=== PATIENT | female | born 1980 | race Caucasian/White ===

== ENCOUNTER 2016-12-30 21:57 | Observation (INO) | payer OTHER ==
[~2016-12-30] VITALS: Ht 157.5 cm; Wt 79.0 kg
[~2016-12-30 21:57] MED LIST: LEVO25TA55 PO; OXYC-323 PO; PRED20TA PO; SERT50TA PO; ZOLP5TAB PO
--- NOTE | 2016-12-30 22:08 | ED.ADGEN ---
Past History Past Medical History: Depression, Other Past Surgical History: Alcohol Use: None Drug Use: None Adult General Chief Complaint Chief Complaint Chest pain HPI HPI Patient is a 36 year old female who presents with substernal chest pain. She states is an achy sensation is been constant all day is made worse when she sneezes or takes a deep breath. She's been having sinus congestion without any discharge however she's been having some green sputum production over the last several days. She's been trying Sudafed without any relief. She denies any family history of heart attacks. She is very concerned she might have pneumonia as her symptoms are very similar to the previous time she had pneumonia. He denies any nausea, diaphoresis associated with her discomfort. Review of Systems Review of Systems Constitutional: Denies fever or chills [] Eyes: Denies change in visual acuity, redness, or eye pain [] HENT: Denies nasal congestion or sore throat [] Respiratory: positive for cough and shortness of breath Cardiovascular: No additional information not addressed in HPI [] GI: Denies abdominal pain, nausea, vomiting, bloody stools or diarrhea [] : Denies dysuria or hematuria [] Musculoskeletal: Denies back pain or joint pain [] Integument: Denies rash or skin lesions [] Neurologic: Denies headache, focal weakness or sensory changes [] Endocrine: Denies polyuria or polydipsia [] Current Medications Current Medications Current Medications Medications (Trade) Dose Ordered Sig/Tom Start Time Stop Time Status Last Admin Dose Admin Aspirin (Sophy Aspirin) 325 mg 1X ONCE 12/31/16 00:30 12/31/16 00:31 UNV 12/31/16 00:30 325 MG Aspirin (Children'S Aspirin) 81 mg STK-MED ONCE 12/31/16 00:31 12/31/16 00:32 DC Morphine Sulfate (Morphine 2mg Syringe) 2 mg PRN Q15MIN PRN 12/30/16 22:15 12/31/16 22:14 12/31/16 00:38 2 MG Allergies Allergies Allergies Coded Allergies Type Severity Reaction Last Updated Verified No Known Drug Allergies 08/23/15 No Physical Exam Physical Exam Constitutional: Well developed, well nourished, no acute distress, non-toxic appearance. [] HENT: Normocephalic, atraumatic, bilateral external ears normal, oropharynx moist, no oral exudates, nose normal. [] Eyes: PERRLA, EOMI, conjunctiva normal, no discharge. [] Neck: Normal range of motion, no tenderness, supple, no stridor. [] Cardiovascular:Heart rate regular rhythm, no murmur [] Lungs & Thorax: Bilateral breath sounds clear to auscultation [] Abdomen: Bowel sounds normal, soft, no tenderness, no masses, no pulsatile masses. [] Skin: Warm, dry, no erythema, no rash. [] Back: No tenderness, no CVA tenderness. [] Extremities: No tenderness, no cyanosis, no clubbing, ROM intact, no edema. [] Neurologic: Alert and oriented X 3, normal motor function, normal sensory function, no focal deficits noted. [] Psychologic: Affect normal, judgement normal, mood normal. [] Current Patient Data Vital Signs Vital Signs Date Time Temp Pulse Resp B/P (MAP) Pulse Ox O2 Delivery O2 Flow Rate FiO2 12/31/16 00:38 20 98 Room Air Lab Results Laboratory Tests Test 12/30/16 22:40 12/30/16 22:45 White Blood Count 7.0 x10^3/uL (4.0-11.0) Red Blood Count 4.27 x10^6/uL (3.50-5.40) Hemoglobin 13.4 g/dL (12.0-15.5) Hematocrit 39.8 % (36.0-47.0) Mean Corpuscular Volume 93 fL (79-100) Mean Corpuscular Hemoglobin 31 pg (25-35) Mean Corpuscular Hemoglobin Concent 34 g/dL (31-37) Red Cell Distribution Width 12.3 % (11.5-14.5) Platelet Count 272 x10^3/uL (140-400) Neutrophils (%) (Auto) 56 % (31-73) Lymphocytes (%) (Auto) 35 % (24-48) Monocytes (%) (Auto) 8 % (0-9) Eosinophils (%) (Auto) 1 % (0-3) Basophils (%) (Auto) 0 % (0-3) Neutrophils # (Auto) 3.9 x10^3uL (1.8-7.7) Lymphocytes # (Auto) 2.4 x10^3/uL (1.0-4.8) Monocytes # (Auto) 0.6 x10^3/uL (0.0-1.1) Eosinophils # (Auto) 0.1 x10^3/uL (0.0-0.7) Basophils # (Auto) 0.0 x10^3/uL (0.0-0.2) Prothrombin Time 9.7 SEC (9.4-11.4) Prothrombin Time INR 0.9 (0.9-1.1) PTT 25 SEC (23-33) D-Dimer (Keila) 0.49 mg/L (0.00-0.50) Urine Collection Type Unknown Urine Color Yellow Urine Clarity Clear Urine pH 5.5 Urine Specific [place] 1.020 Urine Protein Neg (NEG-TRACE) Urine Glucose (UA) Neg mg/dL (NEG) Urine Ketones (Stick) Neg mg/dL (NEG) Urine Blood Mod (NEG) Urine Nitrite Neg (NEG) Urine Reducing Substances % (NEG) Urine Bilirubin Neg (NEG) Urine Urobilinogen Dipstick 0.2 mg/dL (0.2 mg/dL) Urine Leukocyte Esterase Neg (NEG) Urine RBC 3-5 /HPF (0-2) Urine WBC Occ /HPF (0-4) Urine Squamous Epithelial Cells Few /LPF Urine Bacteria Few /HPF (0-FEW) Sodium Level 141 mmol/L (136-145) Potassium Level 3.6 mmol/L (3.5-5.1) Chloride Level 106 mmol/L (98-107) Carbon Dioxide Level 27 mmol/L (21-32) Anion Gap 8 (6-14) Blood Urea Nitrogen 17 mg/dL (7-20) Creatinine 0.9 mg/dL (0.6-1.0) Estimated GFR (Cockcroft-Gault) 71.3 Glucose Level 94 mg/dL (70-99) Calcium Level 8.9 mg/dL (8.5-10.1) Magnesium Level 2.0 mg/dL (1.8-2.4) Total Bilirubin 0.2 mg/dL (0.2-1.0) Direct Bilirubin 0.1 mg/dL (0.0-0.2) Aspartate Amino Transferase (AST) 15 U/L (15-37) Alanine Aminotransferase (ALT) 22 U/L (14-59) Alkaline Phosphatase 75 U/L (46-116) Creatine Kinase 93 U/L (26-192) Creatine Kinase MB (Mass) 0.7 ng/mL (0.0-3.6) Creatine Kinase MB Relative Index 0.8 % (0-4) Troponin I Quantitative < 0.017 ng/mL (0-0.055) SL-Lyj-S-Type Natriuretic Peptide 26 pg/mL (0-124) Total Protein 7.3 g/dL (6.4-8.2) Albumin 3.5 g/dL (3.4-5.0) Lipase 126 U/L (73-393) Serum Test, Qualitative Negative (NEG) POC Urine HCG, Qualitative hcg negative (Negative) EKG EKG EKG shows sinus rhythm with a rate of [address] elevations, T-wave inversions noted in lead 3 and aVF, left axis deviation, QTC 413 ms, as interpreted by me. Radiology/Procedures Radiology/Procedures 2 view chest x-ray did not show any focal consolidations, bony abnormalities, or pneumothorax, as interpreted by me. Course & Med Decision Making Course & Med Decision Making Pertinent Labs and Imaging studies reviewed. (See chart for details) D-dimer is negative at 0.49, troponin is negative. Chest x-ray does not show any acute abnormalities. She does have T-wave inversion in lead 3 and aVF, we' ll admit to Dr. Mota , she's been given aspirin. She is agreeable to the plan and is in stable condition this time. Interim orders have been written. Final Impression Final Impression Chest pain Problems: Dragon Disclaimer Dragon Disclaimer This electronic medical record was generated, in whole or in part, using a voice recognition dictation system. JULIET FRANCO MD December 30, 2016 22:07
[2016-12-30] MEDS ORDERED: MORPHINE SULFATE 2 MG/ML DISP.SYRIN. IV/SQ PRN (22:15)
[2016-12-30 23:02] LABS: BASO % 0 % (0-3); EOS # 0.1 x10^3/uL (0.0-0.7); EOS % 1 % (0-3); HEMATOCRIT 39.8 % (36.0-47.0); HEMOGLOBIN 13.4 g/dL (12.0-15.5); LYMPH # 2.4 x10^3/uL (1.0-4.8); LYMPH % 35 % (24-48); MEAN CORPUSCULAR HEMOGLOBIN 31 pg (25-35); MEAN CORPUSCULAR HGB CONC 34 g/dL (31-37); MEAN CORPUSCULAR VOLUME 93 fL (79-100); MONO # 0.6 x10^3/uL (0.0-1.1); MONO % 8 % (0-9); NEUT # 3.9 x10^3uL (1.8-7.7); NEUT % 56 % (31-73); PLATELET COUNT 272 x10^3/uL (140-400); RED BLOOD COUNT 4.27 x10^6/uL (3.50-5.40); RED CELL DISTRIBUTION WIDTH 12.3 % (11.5-14.5)
[2016-12-30 23:12] LABS: PREG TEST PT QUAL NEGATIVE (NEG)
[2016-12-30 23:13] LABS: BACTERIA,URINE FEW /HPF (0-FEW); BILIRUBIN,URINE NEG (NEG); CLARITY,URINE CLEAR; COLOR,URINE YELLOW; GLUCOSE,URINE NEG (NEG); NITRITE,URINE NEG (NEG); SQUAMOUS EPITHELIAL CELL,UR FEW /LPF; UROBILINOGEN,URINE 0.2 mg/dL (0.2 mg/dL); WBC,URINE OCC /HPF (0-4)
[2016-12-30 23:22] LABS: ALBUMIN 3.5 g/dL (3.4-5.0); CALCIUM 8.9 mg/dL (8.5-10.1); CREATININE 0.9 mg/dL (0.6-1.0); DIRECT BILIRUBIN 0.1 mg/dL (0.0-0.2); GFR 71.3; POTASSIUM 3.6 mmol/L (3.5-5.1); TOTAL BILIRUBIN 0.2 mg/dL (0.2-1.0); TOTAL PROTEIN 7.3 g/dL (6.4-8.2)
[2016-12-31] MEDS ORDERED: ASPIRIN 325 MG TABLET PO ONE (00:30)
[2016-12-31] MEDS ORDERED: ASPIRIN 81 MG TAB.CHEW ONE (00:31)
[2016-12-31] MEDS ORDERED: MORPHINE SULFATE 2 MG/ML DISP.SYRIN. IV PRN (01:00)
[2016-12-31] MEDS ORDERED: ONDANSETRON PF 4 MG/2 ML VIAL. IV PRN (01:00)
--- NOTE | 2016-12-31 01:22 | ACF ---
Admission Criteria Forms CARDIOLOGY [facility] Clinical Indications for Admission to Inpatient Care ( Place 'X' for any and all applicable criteria): Hospital admission is needed for appropriate care of the patient because of ANY ONE of the following (1): [ ] I. Hemodynamic instability as indicated by ALL of the following (1)(2)(3) (4)(5) [ ]a) Vital signs or other findings not as expected for chronic patient condition or baseline [ ]b) Instability indicated by ANY ONE of the following: [ ]i) Hypotension [ ]ii) Symptomatic Tachycardia unresponsive to treatment ( e.g., analgesia, fluids, sedation as indicated) [ ]iii) Inadequate perfusion indicated by ANY ONE of the following: [ ] 1) Lactic acidosis (> 2 mmol/L) [ ] 2) New abnormal capillary refill (> 3 seconds) [ ] 3) Reduced urine output [ ] 4) New altered mental status [ ]iv) Orthostatic vital sign changes unresponsive to treatment (e.g., fluids) [ ]v) IV inotropic or vasopressor medication required to maintain adequate blood pressure or perfusion [ ] II. Severe heart failure as indicated by ANY ONE of the following(17)(18) [ ]a) Respiratory distress [ ]b) Hypotension [ ]c) Anasarca (refractory to outpatient therapy) [ ]d) Cardiac arrhythmias of immediate concern [ ]e) Myocardial ischemia [ ] III. Cardiac arrhythmias or findings of immediate concern indicated by ANY ONE of the following (19)(20): [ ] a) Heart rhythms that are inherently dangerous or unstable indicated by ANY ONE of the following (21)(22)(23): [ ] i) Resuscitated ventricular fibrillation or cardiac arrest [ ] ii) Ventricular escape rhythm [ ] iii) Sustained ventricular tachycardia (30 seconds or more of ventricular rhythm at greater than 100 beats per minute) [ ] iv) Nonsustained ventricular tachycardia and ANY ONE of the following: [ ] 1) Suspected cardiac ischemia as cause or consequence of ventricular tachycardia [ ] 2) In setting of acute myocarditis [ ] b) Unstable cardiac conduction defects indicated by ANY ONE of the following(23)(24)(25) [ ] i) Type II second-degree atrioventricular block [ ]ii) Third-degree atrioventricular block [ ]iii) New-onset left bundle branch block with suspected myocardial ischemia [ ]c) Any heart rhythm and ANY ONE of the following (21)(22)(26)(27) (28) [ ] i) Continuous long-term ECG monitoring needed (e.g., initiation of drug requiring monitoring for more than 24 hours) [ ] ii) Patient has automatic implanted cardioverter defibrillator that is repeatedly firing, malfunctioning, or in need of immediate adjustment of settings beyond the scope of ambulatory or observation care [ ]d) Heart rhythms of concern due to ANY ONE of the following: [ ] i) Hypotension [ ] ii) Respiratory distress [ ] iii) Association with other significant symptoms (e.g., bradycardia with syncope or ongoing dizziness, supraventricular tachycardia with chest pain (14)(15)(17) [ ] IV. Monitoring for cardiac contusion beyond the scope of observation care needed [A](30)(31)(32) [ ] V. Surgical or device complication (e.g., valve replacement complication , pacemaker dysfunction) (35)(41)(44)(45)(46) [ ] . Inpatient palliative care needed. [B](49) Also use Inpatient Palliative Care Criteria [ ] VII. Nonbacterial thrombotic (marantic) endocarditis (36)(43)(47)(48) [X ] VIII. Cardiology condition, symptom, or finding for which emergency and observation care has failed or are not considered appropriate. [ ] IX. Acute valvular disease requiring inpatient as indicated by ANY ONE of the following (41) [ ]a) Acute valvular regurgitation (42) [ ]b) Noninfectious valvulitis (43) [ ]c) Obstructive valve thrombosis [ ]d) Paravalvular leak [ ]e) Other significant valvular disorder remaining after emergency or observation level of care (as appropriate) [ ]X. Pericardial disease requiring inpatient treatment as indicated by ANY ONE of the following (33)(34)(35)(36)(37) [ ]a) Suspected tamponade (38)(39)(40) [ ]b) Hemopericardium [ ]c) Other significant pericardial disorder remaining after emergency or observation level of care (as appropriate) [ ] XI. Cardiac ischemia beyond scope of emergency and observation care. [ ] XII. Hypertension requiring inpatient treatment as indicated by ANY ONE of the following (6)(7)(8) [ ]a) SBP greater than 220 mm Hg or DBP greater than 120 mmHg despite treatment [ ]b) SBP greater than 140 mm Hg or DBP greater than 100 mm Hg with evidence of acute end organ damage as indicated by ANY ONE of the following [ ] i) Encephalopathy [ ] ii) Acute renal failure as indicated by new onset of ANY ONE of the following (9)(10)(11)(12)(13) [ ]1) 3-fold rise in serum creatinine from baseline [ ]2) Serum creatinine greater than 4 mg/dL ( 354 micromoles/L) with acute rise greater than 0.5 mg/dL (44.2 micromoles/L) [ ]3) Reduction of more than 75% in estimated glomerular filtration rate from baseline [ ]4) Estimated glomerular filtration rate less than 35 mL/min/1.73m2 (0.59 mL/sec/1.73m2) in child up to 18 years of age [ ]5) Cessation of urine output indicated by ALL of the following [ ]A. Adequate volume status [ ]B. Inadequate urine output as indicated by ANY ONE of the following [ ]a. Urine output less than 0.3 mL/kg/hr for 24 hours [ ]b. Anuria (urine output less than 0.1 mL/kg/hr) for 12 hours [ ] iii) Aortic dissection [ ] iv) Myocardial Ischemia [ ] v) Left ventricular heart failure [ ]vi) Retinal Hemorrhage [ ]vii) Other significant finding [ ]c) Hypertension in child requiring inpatient treatment as indicated by ALL of the following(14)(15)(16) [ ] i) Outpatient treatment not effective, not available, or not appropriate [ ]ii) SBP or DBP greater than 95th percentile for age [ ]iii) Evidence of acute end organ damage as indicated by ANY ONE of the following [ ]1) Altered mental status [ ]2) Acute renal failure as indicated by new onset of ANY ONE of the following(9)(10)(11)(12)(13) [ ]A. 3-fold rise in serum creatinine from baseline [ ]B. Serum creatinine greater than 4 mg/dL (354 micromoles/L) with acute rise greater than 0.5 mg/dL (44.2 micromoles/L) [ ]C. Reduction of more than 75% in estimated glomerular filtration rate from baseline [ ]D. Estimated glomerular filtration rate less than 35 mL/min/1.73m2 (0.59 mL/sec/1.73m2) in child up to 18 years of age [ ]E. Cessation of urine output indicated by ALL of the following [ ]a. Adequate volume status [ ]b. Inadequate urine output as indicated by ANY ONE of the following [ ]i) Urine output less than 0.3 mL/kg/hr for 24 hours [ ]ii) Anuria ( urine output less than 0.1 mL/kg/hr) for 12 hours [ ]3) Severe headache [ ]4) Visual disturbance [ ]5) Retinal hemorrhage [ ]6) Other significant finding [ ]XIII. Complications of transplanted heart indicated by ANY ONE of the following(61): [ ]a) Acute graft rejection requiring inpatient management (eg, intravenous immunosuppression)(62)(63) [ ]b) Acute graft heart failure indicated by ANY ONE of the following(64): [ ]i) Hemodynamic instability [ ]ii) Cardiac arrhythmias of immediate concern [ ]iii) Pulmonary edema that is very severe (eg, mechanical ventilation needed, imminent or likely, need for 100% oxygen to keep oxygen saturation above 90%) [ ]iv) Pulmonary edema that is persistent as indicated by ALL of the following: [ ]1) New need for oxygen therapy to keep oxygen saturation above 90% (or increased FiO2 need from baseline) [ ]2) Has not improved sufficiently with emergency department or observation care IV diuretics or other heart failure treatments[E] [ ]v) Altered mental status that is severe or persistent [ ]vi) Increased creatinine (new on laboratory test) with reduction of more than 50% in estimated glomerular filtration rate from baseline [ ]vii) Progressively (ongoing) rising creatinine (known from past laboratory test) with reduction of more than 25% in estimated glomerular filtration rate from baseline [ ]viii) Acute renal failure [ ]ix) Acute peripheral ischemia (eg, examination shows pulseless, cool, mottled, or cyanotic extremity) [ ]x) Pulmonary artery catheter monitoring needed [ ]xi) Other sign or symptom of heart failure requiring inpatient treatment (ie, too severe or not responsive to outpatient and observation care treatment) [ ]c) Infection requiring inpatient management (eg, Hemodynamic instability, need for intravenous antimicrobial treatment)(66)(67)(68)(69)(70) [ ]d) Cardiac allograft vasculopathy requiring inpatient management ( eg evidence of cardiac ischemia)(71) [ ]e) Other complication of transplanted heart (eg, stroke, severe pulmonary hypertension, severe valvular dysfunction) requiring inpatient management(72) The original [facility] content created by [facility] has been revised. The portions of the content which have been revised are identified through the use of italic text or in bold, and [facility] has neither reviewed nor approved the modified material. All other unmodified content is copyright [facility]. Please see references footnoted in the original [facility] edition 2016 Admission Criteria Met?: Yes FLORENTINO FERGUSON December 31, 2016 01:22
[2016-12-31 01:30] VITALS: BP 113/75
[2016-12-31] MEDS ORDERED: NORE-87 PO (02:03)
[2016-12-31] MEDS ORDERED: oxyCODONE/APAP 5/325 1 TAB TABLET PO PRN (02:45)
[2016-12-31 06:09] VITALS: BP 112/61
[2016-12-31 06:35] VITALS: BP 143/94
--- NOTE | 2016-12-31 06:39 | EKG ---
[address] [address] Test Date: 2016-12-30 Test Time: 22:04:10 Pat Name: CRESCENCIO GREENE Department: Room: 117 A Gender: F [employer]: SHANTAL : 1980 Requested By: JULIET FRANCO Order Number: [id number] Reading MD: Chip Guerrero Measurements Intervals [place] Rate: 65 P: 24 SD: 146 QRS: -16 QRSD: 88 T: 4 QT: 396 QTc: 413 Interpretive Statements SINUS RHYTHM INCOMPLETE RIGHT BUNDLE BRANCH BLOCK Electronically Signed On 01-06-2017 9:02:37 CDT by Chip Guerrero
[2016-12-31] MEDS ORDERED: LEVOTHYROXINE 25 MCG TABLET. PO SCH (07:00)
--- NOTE | 2016-12-31 07:03 | RAD ---
Indication: Chest pain and congestion. Time of exam 2320 hours. No prior studies are available for comparison. FINDINGS: The heart size is normal. The lungs are clear. No pleural effusion or pneumothorax is identified. The pulmonary vascularity is normal. IMPRESSION: No acute abnormality detected.
[2016-12-31] MEDS ORDERED: NORETHINDRONE A E ESTRADIOL PO SCH (09:00)
[2016-12-31] MEDS ORDERED: SERTRALINE 50 MG TABLET. PO SCH (09:00)
[2016-12-31 10:18] VITALS: BP 111/72
[2016-12-31] MEDS ORDERED: PANTOPRAZOLE 40 MG TABLET. PO SCH (11:30)
[2016-12-31] MEDS ORDERED: oxyCODONE/APAP 5/325 1 TAB TABLET PO ONE (13:30)
--- NOTE | 2016-12-31 13:41 | CARD ---
APPROVED REPORT INDICATION Chest Pain RISK FACTORS Obesity Reason : Abnormal EKG PROCEDURE The patient underwent an exercise Stress Test using the Juan Protocol. Blood pressure, heart rate, a nd EKG were monitored. An Echocardiogram was performed by ophthalmic technician apprentice in four stages in quad fashion. At peak stress four se lected images were obtained and placed side by side with resting images for comparison. STRESS ECHO FINDINGS The resting Echocardiogram showed normal left ventricular contractility with an estimated Ejection Fr action of about 65 %. Normal augmentation of myocardial wall segments using a 16 segment model. Test Type: Exercise Stress Nurse/Tech: Duran Ventura RDCS,RVT,RDMS,RT(R) Test Indications: Chest pain Resting Heart Rate: 73 bpm STRESS ECG Stress EKG shows no significant changes. Preliminary Notification Critical Value: No <Conclusion> No evidence of stress induced EKG changes. Normal exercise capacity with 13 Mets achieved on a Juan Protocol. Normal resting wall motion and EF of 55% Peak stress images do not demonstrate any significant wall motion abnormalities on parasternal long a xis images. EF > 70% Apical images were obtained at less than peak stress, but appear to demonstrate normal wall motion.
--- NOTE | 2016-12-31 13:44 | PDOC2 ---
STAR PRUITT WATCH CRYSTAL CUTTER 12/31/16 1344: CONSULT Date of Admission DATE: 12/31/16 TIME: 13:33 Reason for Consult: Chest pain Problem List Problems Medical Problems: (1) Chest pain Status: Acute History of Present Illness This is a pleasant 36-year-old female who presented to the emergency room with chief complaint of chest discomfort. She has a past medical history of hypothyroidism and depression. The last 2 days she has noticed chest congestion and has started to sneeze she thought she was coming down with pneumonia. Yesterday she started to notice pin pricking sensations all over her chest that would increase with deep breathing. She tried to take some Sudafed but it did not seem to get any better. She was coughing up green sputum without fever or chills. The chest pain was not related to activity and did not radiate into her jaw. She did feel slightly more short of breath but not any nausea, vomiting or diaphoresis. She thought she was going to come into the emergency room and get an antibiotic. She denies any recent changes in function however she has been under tremendous stress. She is getting ready to move on Friday and change to the stations and then her will be deployed. She felt like she had been handling stress quite well but does admit to internalizing in her feelings. This morning after her lab draw in her left arm she felt like she got a tingling sensation in her fingers that radiated up into her left arm and that her arm got weak. They did an EKG that did not show any changes and over the next 0.5 hour her symptoms abated without intervention. She has ruled out for myocardial infarction however she does have a slightly abnormal EKG with inverted T-wave in lead 3. Past medical/surgical history is significant for hypothyroidism, OCD, and depression Allergies -no known drug allergies Medications- Zoloft 100 milligrams daily and levothyroxine 25 micrograms daily Social history she lives at home with her who is getting ready to deploy a and she is moving to the stations. She denies any tobacco and only has social alcohol use. She denies any drug use. Family history - her mother has had diabetes since adolescents and her father is hypertensive. They both smoke, there is no history of premature coronary artery disease. Review of systems- review of 10 organ systems is negative except for as above. Physical exam GENERAL: This is a well developed, well nourished female. No apparent distress. SKIN: Warm and dry with normal skin turgor. Negative for pallor. No lesions or rashes noted. EYES: Conjunctiva are clear. Extraocular movements are intact. No xanthelasma. HEAD AND NECK: Oral mucosa is moist. There is no cyanosis. Neck is supple. Jugular venous pressure is flat. Carotid pulses are 2/2 bilaterally. No carotid bruit. There is no obvious thyromegaly. HEART: Regular rate and rhythm. Normal S1 and S2. No S3. No S4. No significant murmur. No rub. PMI is not displaced. LUNGS: Effort is good. There is symmetric expansion bilaterally. Clear to auscultation bilaterally. No wheezes. No crackles. No rhonchi. ABDOMEN: Normal active bowel sounds. Soft. Nontender. EXTREMITIES: No clubbing. No cyanosis. trace right > left edema of lower extremities. Palpable pedal pulses. MUSCULOSKELETAL: No kyphosis. No scoliosis. No localized tenderness or stiffness. Gait appears normal. NEUROLOGIC: Alert and oriented times three. Cranial nerves III-XII are grossly intact. Good motor tone and strength in the upper and lower extremities bilaterally. PSYCHOLOGIC: This is a pleasant patient with a normal affect Chest discomfort with slightly abnormal EKG. Her EKG and troponins are negative and her chest pains are atypical for cardiac. She has been under a great deal of stress and this could be GI in origin. Will plan for echo and stress test today and if unremarkable can discharge home. We will plan to start her on a month trial of Protonix Current Medications Current Medications Morphine Sulfate (Morphine 2mg Syringe) 2 mg PRN Q15MIN PRN IV/SQ PAIN GREATER THAN 3/10 Last administered on 12/31/16 00:38; Start 12/30/16 at 22:15; Stop 12/31 at 10:54; Status DC Aspirin (Sophy Aspirin) 325 mg 1X ONCE PO Last administered on 12/31/16 00:30 ; Start 12/31/16 at 00:30; Stop 12/31/16 at 01:38; Status DC Aspirin (Children'S Aspirin) 81 mg STK-MED ONCE .ROUTE ; Start 12/31/16 at 00:31 ; Stop 12/31/16 at 00:32; Status DC Ondansetron HCl (Zofran) 4 mg PRN Q4HRS PRN IV NAUSEA/VOMITING; Start 12/31/16 at 01:00; Stop 01/01/17 at 00:59 Morphine Sulfate (Morphine 2mg Syringe) 2 mg PRN Q2HR PRN IV PAIN; Start at 01:00; Stop 01/01/17 at 00:59 Levothyroxine Sodium (Synthroid) 25 mcg DAILY07 PO Last administered on 06:01; Start 12/31/16 at 07:00 Oxycodone/ Acetaminophen (Percocet 5/325) 1 tab PRN Q12HR PRN PO PAIN Last administered on 12/31/16 03:43; Start 12/31/16 at 02:45 Sertraline HCl (Zoloft) 100 mg DAILY PO Last administered on 12/31/16 08:06; Start 12/31/16 at 09:00; Stop 12/31/16 at 10:56; Status DC Non-Formulary Medication 1 tab DAILY PO ; Start 12/31/16 at 09:00; Stop 12/31/16 at 10:53; Status DC Pantoprazole Sodium (Protonix) 40 mg DAILYAC PO Last administered on 12/31/16 11:56; Start 12/31/16 at 11:30 Sertraline HCl (Zoloft) 100 mg DAILY PO ; Start 01/01/17 at 09:00 Oxycodone/ Acetaminophen (Percocet 5/325) 1 tab 1X ONCE PO Last administered on 12/31/16 13:14; Start 12/31/16 at 13:30; Stop 12/31/16 at 13:31; Status DC Active Scripts Active Reported Loestrin (Norethindrone A-E Estradiol) 1 Each Tablet 1 Tab PO DAILY LAST DOSE GIVEN: DATE: TIME: NEXT DOSE DUE: DATE: TIME: Synthroid (Levothyroxine Sodium) 25 Mcg Tablet 25 Mcg PO DAILYAC LAST DOSE GIVEN: DATE: TIME: NEXT DOSE DUE: DATE: TIME: Percocet 5-325 Mg Tablet (Oxycodone Hcl/Acetaminophen) 1 Each Tablet 1 Tab PO PRN Q12HR PRN LAST DOSE GIVEN: DATE: TIME: NEXT DOSE DUE: DATE: TIME: Zoloft (Sertraline Hcl) 50 Mg Tablet 100 Mg PO DAILY LAST DOSE GIVEN: DATE: TIME: NEXT DOSE DUE: DATE: TIME: Allergies: Coded Allergies: No Known Drug Allergies (Unverified , 08/23/15) VITALS Vital Signs Date Time Temp Pulse Resp B/P (MAP) Pulse Ox O2 Delivery O2 Flow Rate FiO2 12/31/16 13:14 Room Air 12/31/16 10:18 97.9 76 20 111/72 (85) 95 Labs Laboratory Tests Test 12/30/16 22:40 12/30/16 22:45 12/31/16 06:09 12/31/16 11:50 White Blood Count 7.0 x10^3/uL (4.0-11.0) Red Blood Count 4.27 x10^6/uL (3.50-5.40) Hemoglobin 13.4 g/dL (12.0-15.5) Hematocrit 39.8 % (36.0-47.0) Mean Corpuscular Volume 93 fL (79-100) Mean Corpuscular Hemoglobin 31 pg (25-35) Mean Corpuscular Hemoglobin Concent 34 g/dL (31-37) Red Cell Distribution Width 12.3 % (11.5-14.5) Platelet Count 272 x10^3/uL (140-400) Neutrophils (%) (Auto) 56 % (31-73) Lymphocytes (%) (Auto) 35 % (24-48) Monocytes (%) (Auto) 8 % (0-9) Eosinophils (%) (Auto) 1 % (0-3) Basophils (%) (Auto) 0 % (0-3) Neutrophils # (Auto) 3.9 x10^3uL (1.8-7.7) Lymphocytes # (Auto) 2.4 x10^3/uL (1.0-4.8) Monocytes # (Auto) 0.6 x10^3/uL (0.0-1.1) Eosinophils # (Auto) 0.1 x10^3/uL (0.0-0.7) Basophils # (Auto) 0.0 x10^3/uL (0.0-0.2) Prothrombin Time 9.7 SEC (9.4-11.4) Prothromb Time International Ratio 0.9 (0.9-1.1) Activated Partial Thromboplast Time 25 SEC (23-33) D-Dimer (Keila) 0.49 mg/L (0.00-0.50) Urine Collection Type Unknown Urine Color Yellow Urine Clarity Clear Urine pH 5.5 Urine Specific [place] 1.020 Urine Protein Neg (NEG-TRACE) Urine Glucose (UA) Neg mg/dL (NEG) Urine Ketones (Stick) Neg mg/dL (NEG) Urine Blood Mod (NEG) Urine Nitrite Neg (NEG) Urine Reducing Substances % (NEG) Urine Bilirubin Neg (NEG) Urine Urobilinogen Dipstick 0.2 mg/dL (0.2 mg/dL) Urine Leukocyte Esterase Neg (NEG) Urine RBC 3-5 /HPF (0-2) Urine WBC Occ /HPF (0-4) Urine Squamous Epithelial Cells Few /LPF Urine Bacteria Few /HPF (0-FEW) Sodium Level 141 mmol/L (136-145) Potassium Level 3.6 mmol/L (3.5-5.1) Chloride Level 106 mmol/L (98-107) Carbon Dioxide Level 27 mmol/L (21-32) Anion Gap 8 (6-14) Blood Urea Nitrogen 17 mg/dL (7-20) Creatinine 0.9 mg/dL (0.6-1.0) Estimated GFR (Cockcroft-Gault) 71.3 Glucose Level 94 mg/dL (70-99) Calcium Level 8.9 mg/dL (8.5-10.1) Magnesium Level 2.0 mg/dL (1.8-2.4) Total Bilirubin 0.2 mg/dL (0.2-1.0) Direct Bilirubin 0.1 mg/dL (0.0-0.2) Aspartate Amino Transf (AST/SGOT) 15 U/L (15-37) Alanine Aminotransferase (ALT/SGPT) 22 U/L (14-59) Alkaline Phosphatase 75 U/L (46-116) Creatine Kinase 93 U/L (26-192) Creatine Kinase MB (Mass) 0.7 ng/mL (0.0-3.6) Creatine Kinase MB Relative Index 0.8 % (0-4) Troponin I Quantitative < 0.017 ng/mL (0-0.055) < 0.017 ng/mL (0-0.055) < 0.017 ng/mL (0-0.055) VA-Gqh-L-Type Natriuretic Peptide 26 pg/mL (0-124) Total Protein 7.3 g/dL (6.4-8.2) Albumin 3.5 g/dL (3.4-5.0) Lipase 126 U/L (73-393) Serum Test, Qualitative Negative (NEG) Bedside Urine HCG, Qualitative hcg negative (Negative) YOSEPH CASTELLANOS Jr, MD 01/02/17 0631: CONSULT Allergies: Coded Allergies: No Known Drug Allergies (Unverified , 08/23/15) Assessment/Plan The patient was seen by Star Pruitt APRN and I have reviewed her findings and plan and agree with above. Due to staffing constraints, we did not have an attending available on this day to see the patient. Problems: STAR PRUITT APRN December 31, 2016 13:44 YOSEPH CASTELLANOS Jr, MD January 02, 2017 06:31
[2016-12-31] MEDS ORDERED: PANT40TA3 PO (14:14)
--- NOTE | 2016-12-31 14:24 | CARD ---
APPROVED REPORT EXAM: Two-dimensional and M-mode echocardiogram with Doppler and color Doppler. Other Information Quality : GoodHR: 70bpm Rhythm : NSR INDICATION Chest Pain 2D DIMENSIONS RVDd2.4 (2.9-3.5cm)Left Atrium(2D)3.5 (1.6-4.0cm) IVSd0.9 (0.7-1.1cm)Aortic Root(2D)2.6 (2.0-3.7cm) LVDd4.4 (3.9-5.9cm)LVOT Diameter2.2 (1.8-2.4cm) PWd1.0 (0.7-1.1cm)LVDs3.0 (2.5-4.0cm) FS (%) 30.9 %SV50.3 ml LVEF(%)58.9 (>50%) Aortic Valve AoV Peak Lawrence.109.4cm/sAoV VTI21.2cm AO Peak GR.4.8mmHgLVOT Peak Lawrence.113.3cm/s LVOT VTI 21.18cmAO Mean GR.3mmHg MARGARITA (VMAX)4.47hl9YQV (VTI)3.91cm2 Mitral Valve MV E Jclcssdi66.8cm/sMV E Peak Gr.4mmHg MV DECEL [id number] A Gcwxyeea73.5cm/s MV E Mean Gr.2mmHgE/A Ratio1.3 MV A [id number] Pulmonary Vein S1 Zzzlpahh04.0cm/sD2 Uspqppku97.6cm/s LEFT VENTRICLE The left ventricle is normal size. There is normal left ventricular wall thickness. The left ventricu lar systolic function is normal and the ejection fraction is within normal range. The Ejection Fracti on is 60-65%. There is normal LV segmental wall motion. The left ventricular diastolic function and f illing is normal for age. RIGHT VENTRICLE The right ventricle is normal size. There is normal right ventricular wall thickness. The right ventr icular systolic function is normal. ATRIA The left atrium size is normal. The right atrium size is normal. The interatrial septum is intact wit h no evidence for an atrial septal defect or patent foramen ovale as noted on 2-D or Doppler imaging. AORTIC VALVE The aortic valve is normal in structure and function. Doppler and Color Flow revealed no significant aortic regurgitation. There is no significant aortic valvular stenosis. MITRAL VALVE The mitral valve is normal in structure and function. There is no evidence of mitral valve prolapse. There is no mitral valve stenosis. Doppler and Color Flow revealed no mitral valve regurgitation note d. TRICUSPID VALVE Doppler and Color Flow revealed no tricuspid valve regurgitation noted. There is no pulmonary hyperte nsion. PULMONIC VALVE Doppler and Color Flow revealed trace pulmonic valvular regurgitation. There is no pulmonic valvular stenosis. GREAT VESSELS The aortic root is normal in size. The ascending aorta is normal in size. The pulmonary artery is nor mal. The IVC is normal in size and collapses >50% with inspiration. PERICARDIAL EFFUSION There is no evidence of significant pericardial effusion. Critical Notification Critical Value: No <Conclusion> The left ventricular systolic function is normal and the ejection fraction is within normal range. Th e Ejection Fraction is 60-65%. There is normal LV segmental wall motion.
--- NOTE | 2016-12-31 15:24 | EKG ---
[address] [address] Test Date: 2016-12-31 Test Time: 06:46:02 Pat Name: CRESCENCIO GREENE Department: Room: 117 A Gender: F Laboratory Technical Specialist: SHANTAL : 1980 Requested By: ZANDER SCHWARTZ Order Number: [id number] Reading MD: Chip Guerrero Measurements Intervals [place] Rate: 79 P: 56 UT: 156 QRS: -8 QRSD: 90 T: -6 QT: 388 QTc: 446 Interpretive Statements SINUS RHYTHM NON-SPECIFIC ST/T CHANGES Electronically Signed On 01-06-2017 9:04:50 CDT by Chip Guerrero
--- NOTE | 2017-01-01 08:54 | SSS ---
ADMIT DATE: 12/31/2016 HISTORY OF PRESENT ILLNESS: The patient is a 36-year-old female patient who came to the Emergency Room with chief complaint of chest discomfort over the last 3 days. She has got chest congestion and has started to sneeze. She told she was coming down with pneumonia. Yesterday, she started to notice pin pricking sensation all over her chest that would increase with deep breathing. She tried to take some Sudafed, but did not get any better. She was coughing up green sputum without fever or chills. Chest pain was not related to activity and not radiating to her jaw. She did feel slightly more short of breath, but not any nausea, vomiting or diaphoresis. She thought she is going to come to the Emergency Room and get an antibiotic. She denies any recent changes in function; however, she has been under tremendous stress. She was getting ready to move on Friday, changed ____ station and then her will be deployed. She came to the Emergency Room. Her EKG showed no ischemic changes except that she has an inverted T-wave in lead 3 and was admitted, has had 3 sets of cardiac enzymes, all of them were negative and troponin to be less than 0.017. She was seen in consultation by the Cardiology team and then underwent a stress echo, which basically showed no evidence of stress induced EKG changes, normal exercise capacity with 13 METS achieved on a Juan protocol, normal result and resting wall motion and ejection fraction of 55%. Peak stress images did not demonstrate any significant wall motion abnormalities on parasternal long axis images. The ejection fraction was more than 70%. Apical images were obtained ____ demonstrate normal wall motion and the patient was given a prescription for proton pump inhibitor and was basically discharged home. PAST SURGICAL HISTORY: Significant for hypothyroidism, obsessive compulsive disorder and depression. FAMILY HISTORY: Her mother had diabetes since adolescence and her father is hypertensive. They both smoke. There is no history of premature coronary artery disease. SOCIAL HISTORY: She lives at home with her who is getting ready to be deployed and she is moving towards the station. She denied any tobacco and only social alcohol use. She denied any drug use. ALLERGIES: She has no known drug allergies. MEDICATIONS: She is currently on levothyroxine 25 mcg once a day and Zoloft 10 mg once a day. REVIEW OF SYSTEMS: As per history of present illness. PHYSICAL EXAMINATION: GENERAL: On examining her, she looked well and was clearly in no apparent respiratory distress. No pallor, jaundice, cyanosis, or thyromegaly. No jugular venous distention. No limb edema. VITAL SIGNS: Her heart rate was 76, blood pressure was 111/72, temperature was 97.9, respiratory rate 20 and oxygen saturation was 95%. HEAD, EYES, EARS, NOSE AND THROAT: Showed normocephalic, atraumatic. NECK: Supple. HEART: Showed normal first and second heart sounds. No gallop, rub or murmur. CHEST: Clear to auscultation. No crepitation or rhonchi. ABDOMEN: Distended, soft, nontender. NEUROLOGIC: She was awake, alert, responding appropriately. Cranial nerves were intact. EXTREMITIES: She moved extremities without difficulty. She ambulates without assistance or assistive devices. LABORATORY DATA: As I stated, her lab work showed a serum sodium 141, potassium 3.6, chloride 106, bicarbonate 27, anion gap of 8, BUN 17, creatinine 0.9. Estimated GFR was 71 mL per minute. Her glucose 94, calcium was 8.9, magnesium 2. Total bilirubin, AST, ALT, alkaline phosphatase were normal. Her total protein was 7.3, albumin 3.5. Qualitative serum test was negative. She had 3 sets of cardiac enzyme; all of them were less than 0.017. Her white cell count was 7000, hemoglobin 13.4, hematocrit 39.8, MCV 93 and platelet count of 272,000. Her prothrombin time was 9.7, INR of 0.9, aPTT was 25 and D-dimer was 0.49. Urinalysis was unremarkable. As I stated, her EKG showed inverted T-wave in lead 3. Her chest x-ray showed the heart size is normal, the lungs are clear, no pleural effusion or pneumothorax is identified, the pulmonary vascularity is normal. The stress echo showed no evidence of stress induced EKG changes, normal exercise capacity with 13 METS achieved on a Juan protocol, normal resting wall motion and ejection fraction of 55%. Peak stress images did not demonstrate any significant wall motion abnormalities on parasternal long axis images with an ejection fraction more than 70%. Apical images were obtained ____. Peak stress appears to demonstrate normal wall motion. ASSESSMENT AND PLAN: The patient will be discharged home to continue on proton pump inhibitor ____ her Zoloft and levothyroxine. ZANDER SCHWARTZ MD DR: PRETTY/lona JOB#: [id number] / [id number]
[2017-01-01] MEDS ORDERED: SERTRALINE 100 MG TABLET. PO SCH (09:00)
== END 2016-12-31 14:55 | disposition home or self-care (01) ==
LOC: ER 22:04 → 1 SOUTH 12-31 00:53
PROVIDERS: ADMIT Internal Medicine; ATTEND Internal Medicine
DX: R07.9 Chest pain, unspecified (principal); E03.9 Hypothyroidism, unspecified; F42.9 Obsessive-compulsive disorder, unspecified; J18.9 Pneumonia, unspecified organism; F32.9 Major depressive disorder, single episode, unspecified; Z83.3 Family history of diabetes mellitus; Z82.49 Family history of ischemic heart disease and other diseases of the circulatory system
CPT/HCPCS: 36415; 71010; 80048; 80076; 81001; 81025; 82553; 83690; 83735; 83880; 84484; 84703; 85027; 85379; 85610; 85730; 93005; 93306; 93307; 93350; 96374; 99285; G0378; J2270; G0379